=== PATIENT | female | born 1995 | race Caucasian/White ===

== ENCOUNTER → 2022-01-22 09:44 | Outpatient (BNVA) | payer BC, SELFPAY | PROVIDERS: PCP Family Medicine; Visit Provider Family Medicine | DX: Z30.9 Encounter for contraceptive management, unspecified (principal); N93.9 Abnormal uterine and vaginal bleeding, unspecified; F32.A Depression, unspecified | CPT/HCPCS: 80053; 82607; 84443; 85025 ==

== ENCOUNTER → 2022-08-24 14:00 | Outpatient (BNVA) | payer BC, SELFPAY | PROVIDERS: PCP Family Medicine; Visit Provider Obstetrics & Gynecology | DX: N93.9 Abnormal uterine and vaginal bleeding, unspecified (principal) | CPT/HCPCS: 84443; 85025 ==

== ENCOUNTER → 2023-07-26 07:59 | Outpatient (BNVA) | payer BC, SELFPAY | PROVIDERS: PCP Family Medicine; Visit Provider Family Medicine | DX: Z34.90 Encounter for supervision of normal pregnancy, unspecified, unspecified trimester (principal); R30.0 Dysuria | CPT/HCPCS: 80307; 81000; 81025; 84144; 84443; 84702; 85025; 86592; 86762; 86803; 86850; 86900; 87086; 87340; 87491; 87591; 87624; 87806 ==

== ENCOUNTER 2023-08-11 12:36 | Outpatient (CLI) | payer BC, SELFPAY ==
--- NOTE | 2023-08-11 13:00 | USR_ITS ---
PROCEDURE INFORMATION: Exam: US First Trimester, Transabdominal Exam date and time: 08/11/2023 12:39 PM Age: 28 years old Clinical indication: Screening exam; Routine US, uterus; Additional info: Dating US - next 1-2 weeks if possible LABS AND CLINICAL REPORTS: Last menstrual period start date: 05/14/2023 Gestational age (Established): 12 w 5 d Estimated due date (Established): 02/18/2024 TECHNIQUE: Imaging protocol: Real-time transabdominal obstetrical ultrasound of the maternal pelvis and a first trimester , less than 14 weeks 0 days, with image documentation. COMPARISON: No relevant prior studies available. FINDINGS: GESTATION: Gestation: Single intrauterine with a heart rate of 150 bpm. Embryonic/ heart rate: 150 bpm Extra-embryonic membranes/Placenta: Unremarkable. No subchorionic bleed. Amniotic/Chorionic fluid: Amniotic and extra-amniotic fluid are normal for gestational age. BIOMETRY: Gestational age (AUA): average gestational age of 12 weeks 1 day +/-4 days. [place] rump length (CRL): The crown-rump length measures 5.5 centimeters with an average gestational age of 12 weeks 1 day +/-4 days. MATERNAL: Uterus: Uterus measures 11.7 x 6.9 x 10.3 centimeters. Cervix: Unremarkable. Endocervical canal is closed. Right ovary/adnexa: The right ovary measures 3.5 x 1.8 x 4.1 centimeters Left ovary/adnexa: Left ovary measuring 4.1 x 2.3 x 2.7 centimeters. Intraperitoneal space: No intraperitoneal free fluid. US/US OB <= 14 weeks fetus [id number] IMPRESSION: 1. Single live intrauterine with a heart rate of 150 bpm. 2. Average gestational age of 12 weeks 1 day +/-4 days.
== END 2023-08-11 12:37 | disposition home or self-care (01) ==
LOC: RAD 12:36
PROVIDERS: PCP Family Medicine; Visit Provider Family Medicine
DX: Z34.00 Encounter for supervision of normal first pregnancy, unspecified trimester (principal)
CPT/HCPCS: 76801; 80307; 81000; 81025; 84144; 84443; 84702; 85025; 86592; 86762; 86803; 86850; 86900; 87086; 87340; 87491; 87591; 87624; 87806

== ENCOUNTER → 2023-09-21 15:45 | Outpatient (BNVA) | payer BC, SELFPAY | PROVIDERS: PCP Family Medicine; Visit Provider Family Medicine | DX: Z34.00 Encounter for supervision of normal first pregnancy, unspecified trimester (principal) | CPT/HCPCS: 81511 ==

== ENCOUNTER 2023-10-04 11:07 | Outpatient (CLI) | payer BC, SELFPAY ==
--- NOTE | 2023-10-04 11:15 | USR_ITS ---
PROCEDURE INFORMATION: Exam: US After First Trimester, Transabdominal Exam date and time: 10/04/2023 11:18 AM Age: 28 years old Clinical indication: Screening exam; Routine US, uterus; Additional info: Anatomy US - about 6 weeks from now LABS AND CLINICAL REPORTS: Gestational age (Established): 19 w 6 d Estimated due date (Established): 02/22/2024 TECHNIQUE: Imaging protocol: Real-time transabdominal obstetrical ultrasound of the maternal pelvis and a second or third trimester with image documentation. COMPARISON: US OB <= 14 weeks fetus [id number] 08/11/2023 12:39 PM FINDINGS: Gestation: Single live intrauterine gestation. heart rate: 152 bpm. Placenta: No placenta previa. No subchorionic bleed. Placenta is anterior. Amniotic fluid (Qualitative): Amniotic fluid is normal for gestational age. Amniotic fluid index: BAL is 11.04 cm. ANATOMY: midline falx: Normal cerebellum: Normal lateral ventricles: Normal cisterna magna: Normal choroid plexus: Normal face: Upper lip is normal. heart four-chamber view, heart size and position: Normal heart right ventricular outflow tract: Normal heart left ventricular outflow tract: Normal kidneys: Normal stomach: Normal urinary bladder: Normal spine: Normal Umbilical cord and insertion: Normal three-vessel cord. upper limbs: Normal lower limbs: Normal external genitalia: Obscured by position. BIOMETRY: Gestational age (AUA): 19 weeks 6 days Estimated due date (AUA): 02/22/2024 Estimated weight: 337.28 g. EFW by AC, BPD, FL, HC, [place] 1985 Biparietal diameter (BPD): 4.48 cm. EGA (BPD) is 19 w 4 d. 36.5 % percentile Head circumference (HC): 17.07 cm. EGA (HC) is 19 w 5 d. 33.3 % percentile Abdominal circumference (AC): 14.68 cm. EGA (AC) is 20 w 0 d. 48.4 % percentile Femur length (FL): 3.38 cm. EGA (FL) is 20 w 4 d. 69.4 % percentile HC/AC: 1.16. (Normal range: 1.08 - 1.26) FL/HC: 19.8. (Normal range: 16.7 - 19.59) FL/BPD: 75.45 FL/AC: 23.02 MATERNAL: Uterus: Intrauterine gestation. Cervix: Cervix is closed. Cervical length measures 5.9 cm. Right ovary/adnexa: Obscured by lack of adequate acoustic window. Left ovary/adnexa: Obscured by lack of adequate acoustic window. Intraperitoneal space: No intraperitoneal free fluid. US/US OB >= 14 weeks fetus [id number] IMPRESSION: Normal anatomic survey.
== END 2023-10-04 11:08 | disposition home or self-care (01) ==
PROVIDERS: PCP Family Medicine; Visit Provider Family Medicine
DX: Z34.00 Encounter for supervision of normal first pregnancy, unspecified trimester (principal)
CPT/HCPCS: 76805

== ENCOUNTER → 2023-11-16 10:41 | Outpatient (BNVA) | payer BC, SELFPAY | PROVIDERS: PCP Family Medicine; Visit Provider Family Medicine | DX: Z34.00 Encounter for supervision of normal first pregnancy, unspecified trimester (principal) | CPT/HCPCS: 82950 ==

== ENCOUNTER → 2023-12-31 10:09 | Outpatient (BNVA) | payer BC, SELFPAY | PROVIDERS: PCP Family Medicine; Visit Provider Family Medicine | DX: Z51.81 Encounter for therapeutic drug level monitoring (principal) | CPT/HCPCS: 85025 ==

== ENCOUNTER 2024-01-04 12:36 | Outpatient (CLI) | payer BC, SELFPAY ==
--- NOTE | 2024-01-04 12:45 | USR_ITS ---
PROCEDURE INFORMATION: Exam: US , Limited Exam date and time: 01/04/2024 12:47 PM Age: 28 years old Clinical indication: Screening exam; Routine US, uterus; Additional info: Bal/efw - next week please LABS AND CLINICAL REPORTS: Gestational age (Established): 33 w 4 d Estimated due date (Established): 02/18/2024 TECHNIQUE: Imaging protocol: Real-time ultrasound of the maternal uterus with image documentation. Exam focused on the clinical indication. COMPARISON: US OB >= 14 weeks fetus [id number] 10/04/2023 11:18 AM FINDINGS: Gestation: Single live intrauterine gestation. heart rate: 153 bpm. presentation and position: Cephalic. Placenta: Anterior. No previa. Amniotic fluid (Qualitative): Adequate amount of amniotic fluid. Amniotic fluid index: BAL is 12.88 cm. BIOMETRY: Gestational age (AUA): 33 weeks 3 days Estimated due date (AUA): 02/19/2024 Estimated weight: 2172.84 g. EFW by AC, BPD, FL, HC, [place] 1985, 35% percentile Biparietal diameter (BPD): 8.34 cm. EGA (BPD) is 33 w 4 d. 45.2 % percentile Head circumference (HC): 30.18 cm. EGA (HC) is 33 w 4 d. 14.2 % percentile Abdominal circumference (AC): 29.14 cm. EGA (AC) is 33 w 1 d. 39.3 % percentile Femur length (FL): 6.51 cm. EGA (FL) is 33 w 4 d. 39.1 % percentile HC/AC: 1.04. (Normal range: 0.95 - 1.11) FL/HC: 21.57. (Normal range: 19.69 - 21.63) FL/BPD: 78.06. (Normal range: 71 - 87) FL/AC: 22.34. (Normal range: 20 - 24) MATERNAL: Cervix: Unremarkable closed cervix measuring 5 cm. No funneling. US/US OB limited [id number] IMPRESSION: Single live intrauterine gestation with estimated age of 33 weeks 3 days and weight of 2173 g.
== END 2024-01-04 12:37 | disposition home or self-care (01) ==
LOC: RAD 12:37
PROVIDERS: PCP Family Medicine; Visit Provider Family Medicine
DX: O36.5930 Maternal care for other known or suspected poor fetal growth, third trimester, not applicable or unspecified (principal)
CPT/HCPCS: 76815

== ENCOUNTER → 2024-01-26 08:40 | Outpatient (BNVA) | payer BC, SELFPAY | PROVIDERS: PCP Family Medicine; Visit Provider Family Medicine | DX: Z34.93 Encounter for supervision of normal pregnancy, unspecified, third trimester (principal) | CPT/HCPCS: 87081 ==

== ENCOUNTER 2024-02-03 15:10 | Outpatient (CLI) | payer BC, SELFPAY ==
--- NOTE | 2024-02-03 15:15 | US_ITS ---
WS: [id number] BIOPHYSICAL PROFILE AND LIMITED OB. HISTORY: Measuring SGA - BAL, BPP, EFW - in next 3-5 days please COMPARISON: 08/11/2023, 10/04/2023 Presentation: Cephalic Cervix: Closed and normal length. Placenta: Anterior, no previa or abruption. Grade: 2 HEART: FHR of 153BPM. measurements: BPD = 8.9 cm = 36w1d; 24% HC = 33.1 cm = 37w4d; 24% AC = 33.1 cm = 37w0d; 44% FL = 7.4 cm = 37w5d; 47% BAL: 13.5 cm EFW: 3132.7g; 43% AGA by ultrasound: 37w1d KHURRAM by ultrasound: 02/23/2024 Measurements are internally concordant. Biophysical profile: Parameters are as follows: Breathin Movement: 2 Tone: 2 Fluid volume: 2 US/US OB lm w fetalBPP woNST &umb IMPRESSION: 1. Biophysical profile score: 8/8. 2. Single intrauterine gestation of 37w1d with an 02/23/2024. Appropriate growt h since the first trimester ultrasound. 3. Estimated weight at the 43rd percentile for age. 4. No intrauterine growth asymmetry. 5. Amniotic fluid index: 13.5 cm.
== END 2024-02-03 15:11 | disposition home or self-care (01) ==
LOC: RAD 15:11
PROVIDERS: PCP Family Medicine; Visit Provider Family Medicine
DX: O36.5930 Maternal care for other known or suspected poor fetal growth, third trimester, not applicable or unspecified (principal)
CPT/HCPCS: 76815; 76819; 76820

== ENCOUNTER → 2024-02-04 10:34 | Outpatient (BNVA) | payer BC, SELFPAY | PROVIDERS: PCP Family Medicine; Visit Provider Family Medicine | DX: O26.893 Other specified pregnancy related conditions, third trimester (principal); Z3A.37 37 weeks gestation of pregnancy; R03.0 Elevated blood-pressure reading, without diagnosis of hypertension; Z51.81 Encounter for therapeutic drug level monitoring | CPT/HCPCS: 80053; 82570; 84156; 84550; 85025 ==

== ENCOUNTER → 2024-02-10 09:13 | Outpatient (BNVA) | payer BC, SELFPAY | PROVIDERS: PCP Family Medicine; Visit Provider Family Medicine | DX: Z34.00 Encounter for supervision of normal first pregnancy, unspecified trimester (principal); R03.0 Elevated blood-pressure reading, without diagnosis of hypertension | CPT/HCPCS: 84156 ==

== ENCOUNTER 2024-02-17 18:13 | Inpatient (IN) | payer BC, SELFPAY ==
[2024-02-17] VITALS (15 sets, daily range): BP systolic 99–113; BP diastolic 57–78; PULSE 76–100; RESP 16; BMI 27.0
[2024-02-17 18:57] LABS: Basophils # 0.1 10^3/uL (0.0-0.1); Basophils % 0.7 %; Eosinophils # 0.1 10^3/uL (0.0-0.8); Eosinophils % 1.2 %; Hematocrit 38.1 % (36-47); Lymphocytes % 28.9 %; Mean Corpuscular HGB Conc 33.6 g/dL (30-55); Mean Corpuscular Hemoglobin 30.3 pg (27-33); Mean Corpuscular Volume 90.3 fl (85-98); Mean Platelet Volume 10.8 fL (7.4-10.4); Monocytes # 0.5 10^3/uL (0.2-0.9); Monocytes % 6.9 %; Neutrophils # 4.27 10^3/uL (1.8-7.7); Neutrophils % 61.7 %; Nucleated Red Blood Cells % 0 %; Platelet Count 220 10^3/cmm (157-399); Red Blood Count 4.22 10^6/uL (3.85-5.65); Red Cell Distribution Width 18.1 % (12.1-15.1); White Blood Count 6.92 10^3/uL (3.29-11.43)
[2024-02-17] MEDS: miSOPROStol 100 mcg tablet 25 MCG VAGINAL (19:45)
--- NOTE | 2024-02-17 20:18 | P.HP_ITS ---
Providers/Chief Complaint 2 Admitting Physician: Elvis Banegas MD Primary Care Provider: Elvis Banegas MD Chief Complaint: IOL History of Present Illness Natalya Talley is a 28 year old @ 39.6 wks by LMP c/with 12 wk US. c/b FOB with child that had congenital heart disease (Likely hypoplastic left ventricle). The patient presented to labor and delivery on the evening of 02/17/2024 for a scheduled elective induction of labor. The patient has not had any significant complications with the . She has been measuring small, however her ultrasounds have shown appropriate growth. The patient has been feeling well. She denies any chest pains, cough, shortness of breath, nausea, vomiting, dysuria, leakage of fluid, vaginal bleeding, fevers. Medications/Allergies Home Medications Medication Instructions Recorded Confirmed Last Taken Type multivitamin 1 tab PO DAILY 07/26/23 02/15/24 Unknown History ferrous sulfate 325 mg (65 mg 325 mg PO DAILY #30 tabs 01/03/24 02/15/24 Unknown Rx iron) tablet Allergies Allergy/AdvReac Type Severity Reaction Status Date / Time No Known Allergies Allergy Verified 10/22/23 09:54 PFSH Acute 2 PFSH: Surgical History No pertinent past surgical history Family History Father Enlarged heart, Onset Age: 44 Denies family history of Colon cancer Ovarian cancer Diabetes Heart disease Hypercholesteremia Breast cancer Hypertension Uterine cancer Thyroid disease Stroke Social History Smoking and tobacco/nicotine status: never used tobacco/nicotine Alcohol intake: never Substance/Drug Use: never Current occupation: [employer] Female Reproductive History: : 1 Vitals/I&O/Wt Last Vital Signs Pulse 80 02/17/24 20:14 Resp 16 02/17/24 18:41 BP 101/71 02/17/24 20:14 O2 Del Method Room Air 02/17/24 18:35 Weight last 48 hrs Weight 152 lb 8 oz Physical Exam 2 Narrative: General: Alert and oriented x3 Eyes: Pupils equal round and reactive to light and accommodation Mouth: Mucous membranes moist, pharynx non-erythematous Cardiac: Regular rate and rhythm without murmurs Lungs: Clear to auscultation bilaterally without wheezes, crackles or rhonchi Abdomen: Soft, non-tender, fundus measures small compared to gestational age Extremities: Trace edema in the bilateral lower extremities Data 02/17/24 18:30 A&P Assessment and plan (1) Supervision of normal intrauterine in primigravida: The patient is doing well overall at this time. heart tones are in the mid 140s with moderate variability and good accelerations. She has a category 1 tracing. She is gissel sporadically, but these are not currently graphing while on the monitor. Her first dose of Cytotec has been placed at approximately 7:45 PM. We will plan to place up to 3 doses depending on her course. She was closed/thick/high upon presentation. We discussed options for pain control including IV medications and epidural. She may have a laboring epidural once she reaches 3 cm or more if she would like. At this point we will proceed with routine induction management. The patient is GBS negative. All questions were answered. The patient and her are in agreement with the current plan of care. Attestations 2 Medical Necessity Statement*: The patient will be here for greater than 2 midnights due to routine intrapartum and management of labor delivery. Coding Level of Care Code Acute Code for Chg Fwd Diagnoses Supervision of normal intrauterine in primigravida Z34.00
[2024-02-18] VITALS (29 sets, daily range): BP systolic 97–129; BP diastolic 54–88; PULSE 60–96; TEMP 35.9–36.7
[2024-02-18] MEDS: miSOPROStol 100 mcg tablet 25 MCG VAGINAL (07:47)
--- NOTE | 2024-02-18 13:39 | P.PN_ITS ---
Subjective 2 Subjective: The patient is doing well overall. She received her first dose of Cytotec at approximately 8 PM. She began to have regular contractions with this. After 4 hours she did not make any change however. She was gissel every 3 to 4 minutes so a second dose was not given initially. By 7 AM today her contractions started to space out. She was still closed at that time. For this reason a second dose of Cytotec was given. Currently the patient is gissel every 2 to 3 minutes. heart tones are in the mid 130s with moderate variability good accelerations. Occasional early decelerations are noted. The patient is feeling the contractions and they are uncomfortable. She has not had any leakage of fluid or bleeding yet. Vitals/I&O/Wt Last Vital Signs Temp 98.1 F 02/18/24 03:27 Pulse 89 02/18/24 12:15 Resp 16 02/17/24 18:41 BP 116/88 02/18/24 12:15 O2 Del Method Room Air 02/17/24 18:35 Weight last 48 hrs Weight 152 lb 8 oz Physical Exam 2 Narrative: General: Alert and oriented x3 Cardiac: Regular rate and rhythm without murmurs Lungs: Clear to auscultation bilaterally without wheezes, crackles or rhonchi Abdomen: Firm with contractions Extremities: Trace edema in the bilateral lower extremities Data 02/17/24 18:30 A&P Assessment and plan (1) Supervision of normal intrauterine in primigravida: The patient is doing well overall at this time. heart tones have a category 1 tracing. She is gissel every 2 to 3 minutes. We will hold off on further Cytotec for now. If her contractions spaced out, there would be a possibility of a third dose, however if she continues to make change then we will monitor for now. Proceed with routine intrapartum induction of labor at this point. All questions were answered. The patient and her are in agreement with current plan of care. Attestations 2 Medical Necessity Statement*: The patient will be here for greater than 2 midnights due to routine intrapartum and management of labor and delivery. Coding Level of Care Code Acute Code for Chg Fwd Diagnoses Supervision of normal intrauterine in primigravida Z34.00
[2024-02-18] MEDS: ondansetron 2 mg/ML SDV 2 mL 4 MG IVP ×2 (15:43→18:44)
[2024-02-18] MEDS: lidocaine 2% INJ 20 mL INJECTION (20:50)
--- NOTE | 2024-02-18 21:27 | P.PCNOB_ITS ---
Delivery Note: Date of delivery: February 18, 2024 Pre-delivery diagnoses: 1. Intrauterine at 40.0 weeks gestation 2. Elective induction of labor Post-delivery diagnoses: 1. Intrauterine status post s pontaneous vaginal delivery at 40.0 weeks gestation 2. Elective induction of labor 3. Nuchal cord x 1 4. Second-degree right vaginal wall and labia laceration 5. Second-degree left vaginal wall lace ration 6. Delivery of healthy male teodora moreirang 6 pounds 11 ounces with Apgars of 8 and 9 Procedure: Spontaneous vaginal delivery Delivering Physician: Elvis Banegas MD Estimated blood loss (mL): 350 Findings: 1. Healthy male weighing 6 pound s 11 ounces with Apgars of 8 and 9 2. Intact placenta with central umbilic al cord insertion site Pre-Delivery Course: Natalya Talley is a 28 year old G1 NOW P1 status post spontaneous vaginal delivery@ 40.0 wks by LMP c/with 12 wk US. Her was complicated by FOB with child that had congenital heart disease (Likely hypoplastic left ventricle). The patient presented to labor and delivery on the evening of 02/17/2024 for a scheduled elective induction of labor. The patient had not had any significant complications with the . She was closed/thick/high upon presentation. She was given 1 dose of Cytotec on the evening of 02/17/2024. She started gissel but this however did not make any change. Her contractions started to space out by approximately 7 AM on 02/18/2024, so a second dose of Cytotec was given. With this dose that she changed to 2 cm after 4 hours. She was having contractions every 3 to 4 minutes and they were painful. For this reason no further Cytotec was given. The patient continued to contract and started to make change on her own. No IV Pitocin for induction was necessary. The patient was 7 cm dilated and had a bulging bag of fluid so in order to augment labor, AROM was performed at 16:46 on 02/18/2024. The patient had clear fluid. The head was well applied to the cervix. The patient continued to make change and was complete by 19:52 on 02/18/2024. The patient did not want to have a laboring epidural. Delivery: The patient began pushing at 19:55 on 02/18/2024. The patient pushed well and the infant delivered in the OA position at 20:11 on 02/18/2024. A nuchal cord was present and reduced. The left shoulder was the anterior shoulder and it delivered with ease. The rest of the infant delivered with ease. The infant's mouth and nose were bulb suction by myself and the was placed on the mother's chest where the nurses were awaiting to care for him. The cord was clamped by myself after approximately 1 minute and cut by the 's father. Cord blood was obtained. The infant took a breath immediately upon delivery, however had overall poor respiratory effort initially. He was eventually taken to the warmer and did well with minimal intervention. The umbilical cord was clamped and traction was placed on umbilical cord and uterine massage was carried out. The placenta delivered without complication at 20:15 on 02/18/2024. The placenta was noted to be intact with a central umbilical cord insertion site. The cervix was inspected and no lacerations were noted. An extensive right vaginal wall tear was noted that moved deep into the posterior lateral vagina. A speculum was used for visualization. 2% lidocaine was placed for anesthesia locally. 3-0 Vicryl was used to repair this in a running fashion. This was then extended to the vertical portion of the tear that extended up to the upper right labia near the clitoral tent. 3-0 Vicryl was used to reapproximate the labial tear. Care was taken to reapproximate this closely. A much smaller tear was noted on the left vaginal wall and this was also repaired in a running fashion. A rectal exam was done and no sutures were noted in the rectal vault. The patient tolerated the procedure well. Post-Delivery Status: Currently both the mother and infant are doing well. History History History 1 Term 1 0 Miscarriages/Ectopic 0 Living Children 1 Past Pregnancies Del. Date GA/Weeks Outcome Route Wt Inf Gender Labor Lgth Comp. Anesth esia Location 02/18/24 40 live - full term Vaginal 6 lb 11 oz Male 12 [facility] - [place] Delivery Date: 02/18/24 Last Updated by: Elvis Banegas MD Extensive right vaginal wall tear with repair. Nuchal cord x 1. No other complications. Measured small throughout 3rd TM on fundal height with good growth on US. A&P Assessment and plan (1) Spontaneous vaginal delivery: The patient is doing well at this time we will proceed with routine care. We will certainly watch for any signs of complications. Coding Level of Care Code Acute Code for Chg Fwd Diagnoses Spontaneous vaginal delivery O80
[2024-02-18] MEDS: ibuprofen 800 mg tablet PO (22:47)
[2024-02-19] VITALS (15 sets, daily range): BP systolic 94–129; BP diastolic 58–84; PULSE 64–91; RESP 17; TEMP 36.6–36.8; O2SAT 98
[2024-02-19] MEDS: PRENATAL VIT NO.130/IRON/FOLIC 1 EACH TABLET PO (09:13)
[2024-02-19] MEDS: ibuprofen 800 mg tablet PO ×3 (09:13→22:30)
[2024-02-19] MEDS: docusate sodium 100 mg Capsule PO (09:13)
[2024-02-19 10:01] LABS: Hematocrit 34.1 % (36-47); Mean Corpuscular HGB Conc 32.8 g/dL (30-55); Mean Corpuscular Hemoglobin 29.5 pg (27-33); Mean Corpuscular Volume 89.7 fl (85-98); Mean Platelet Volume 10.6 fL (7.4-10.4); Platelet Count 193 10^3/cmm (157-399); White Blood Count 14.74 10^3/uL (3.29-11.43)
--- NOTE | 2024-02-19 11:59 | P.PN_ITS ---
Subjective 2 Subjective: The patient is feeling well overall at this time. Her bleeding is decreasing well. She is ambulating, voiding, passing gas and tolerating food by mouth. Her pain is currently well-controlled. She does have pain with breast-feeding. Vitals/I&O/Wt Last Vital Signs Temp 96.6 F L 02/18/24 18:13 Pulse 81 02/19/24 06:15 Resp 16 02/17/24 18:41 BP 115/72 02/19/24 06:15 O2 Del Method Room Air 02/18/24 18:34 02/18/24 02/19/24 02/19/24 22:59 06:59 14:59 Intake Total 500 / 500 Output Total 500 / 500 Balance 0 / 0 Weight last 48 hrs Weight 152 lb 8 oz Physical Exam 2 Narrative: General: Alert and oriented x3 Cardiac: Regular rate and rhythm without murmurs Lungs: Clear to auscultation bilaterally without wheezes, crackles or rhonchi Abdomen: Soft, mild tenderness over uterus. The uterus is firm and 2 cm below the umbilicus. Extremities: Trace edema in the bilateral lower extremities Data 02/19/24 09:45 A&P Assessment and plan (1) Spontaneous vaginal delivery: The patient is doing well overall at this time. We will proceed with routine care. Will plan for discharge home tomorrow as long as she continues to do well. Attestations 2 Medical Necessity Statement*: The patient will be here for greater than 2 midnights due to routine intrapartum and management of labor and delivery. Coding Level of Care Code Acute Code for Chg Fwd Diagnoses Spontaneous vaginal delivery O80
--- NOTE | 2024-02-19 21:28 | PM.DCS ---
Discharge Providers Date of Admission: 02/17/24 18:13 Date of Discharge: February 19, 2024 Attending Provider at Admission: Elvis Banegas MD Attending Provider at Discharge: Elvis Banegas MD Primary Care Provider: Elvis Banegas MD Diagnoses at Discharge Discharge Diagnosis (1) Spontaneous vaginal delivery: Status: Resolved Other Information Additional DC diagnoses/information: 1. Intrauterine status post spontaneous vaginal delivery at 40.0 weeks gestation 2. Elective induction of labor 3. Nuchal cord x 1 4. Second-degree right vaginal wall and labia laceration 5. Second-degree left vaginal wall laceration 6. Delivery of healthy male weighing 6 pounds 11 ounces with Apgars of 8 and 9 Reason for Visit Reason for Visit: IOL Brief History: Natalya Talley is a 28 year old G1 NOW P1 status post spontaneous vaginal delivery@ 40.0 wks by LMP c/with 12 wk US. Her was complicated by FOB with child that had congenital heart disease (Likely hypoplastic left ventricle). The patient presented to labor and delivery on the evening of 02/17/2024 for a scheduled elective induction of labor. The patient had not had any significant complications with the . She was closed/thick/high upon presentation. Hospital Course Hospital Course She was given 1 dose of Cytotec on the evening of 02/17/2024. She started gissel but this however did not make any change. Her contractions started to space out by approximately 7 AM on 02/18/2024, so a second dose of Cytotec was given. With this dose that she changed to 2 cm after 4 hours. She was having contractions every 3 to 4 minutes and they were painful. For this reason no further Cytotec was given. The patient continued to contract and started to make change on her own. No IV Pitocin for induction was necessary. The patient was 7 cm dilated and had a bulging bag of fluid so in order to augment labor, AROM was performed at 16:46 on 02/18/2024. The patient had clear fluid. The head was well applied to the cervix. The patient continued to make change and was complete by 19:52 on 02/18/2024. The patient did not want to have a laboring epidural. The patient began pushing at 19:55 on 02/18/2024. The patient pushed well and the delivered in the OA position at 20:11 on 02/18/2024. The delivered without complication. The patient had a vaginal wall and labial tear that was repaired. Her bleeding was mild to moderate. she has not had any complications. She is ambulating, voiding, passing gas and tolerating food by mouth. Her bleeding is decreasing well and her pain is under good control. Routine discharge instructions were discussed. She will plan to follow up with me at 6 weeks or sooner if needed. All questions were answered. The patient requests discharge home and I believe that she is stable at this time to do so safely. Physical Exam Narrative: General: Alert and oriented x3 Cardiac: Regular rate and rhythm without murmurs Lungs: Clear to auscultation bilaterally without wheezes, crackles or rhonchi Abdomen: Soft, mild tenderness over uterus. The uterus is firm and 2 cm below the umbilicus. Extremities: Trace edema in the bilateral lower extremities Discharge Data Studies Completed and Pending Laboratory Results WBC 14.74 10^3/uL (3.29-11.43) H 02/19/24 09:45 RBC 3.80 10^6/uL (3.85-5.65) L 02/19/24 09:45 Hgb 11.20 g/dL (11.27-16.99) L 02/19/24 09:45 Hct 34.1 % (36-47) L 02/19/24 09:45 MCV 89.7 fl (85-98) 02/19/24 09:45 MCH 29.5 pg (27-33) 02/19/24 09:45 MCHC 32.8 g/dL (30-55) 02/19/24 09:45 RDW 18.0 % (12.1-15.1) H 02/19/24 09:45 Plt Count 193 10^3/cmm (157-399) 02/19/24 09:45 MPV 10.6 fL (7.4-10.4) H 02/19/24 09:45 Neut % (Auto) 61.7 % 02/17/24 18:30 Lymph % (Auto) 28.9 % 02/17/24 18:30 [place] % (Auto) 6.9 % 02/17/24 18:30 Eos % (Auto) 1.2 % 02/17/24 18:30 Baso % (Auto) 0.7 % 02/17/24 18:30 Neut # (Auto) 4.27 10^3/uL (1.8-7.7) 02/17/24 18:30 Lymph # (Auto) 2.0 10^3/uL (0.8-4.8) 02/17/24 18:30 [place] # (Auto) 0.5 10^3/uL (0.2-0.9) 02/17/24 18:30 Eos # (Auto) 0.1 10^3/uL (0.0-0.8) 02/17/24 18:30 Baso # (Auto) 0.1 10^3/uL (0.0-0.1) 02/17/24 18:30 Nucleated RBC % (auto) 0 % 02/17/24 18: Nucleated RBCs # 0.0 /100WBC 02/17/24 18:30 Blood Type O Positive 02/17/24 18:30 Rho(D) Type Rh positive 02/17/24 18:30 Antibody Screen Negative 02/17/24 18:30 Vitals Last Vital Signs Temp 98.1 F 02/19/24 16:50 Pulse 83 02/19/24 16:50 Resp 17 02/19/24 16:50 BP 110/76 02/19/24 16:50 O2 Del Method Room Air 02/19/24 16:50 Discharge Plan Discharge Patient Disposition: Home Condition: Good Prescriptions: New ibuprofen 800 mg Tablet 800 mg PO TID Qty: 60 0RF Continued multivitamin Tablet 1 tab PO DAILY ferrous sulfate 325 mg (65 mg iron) tablet 325 mg PO DAILY Qty: 30 3RF Discharge Orders: Discharge Order (Routine); Ordered 02/19/24 Ordered By: Elvis Banegas Referrals: Elvis Banegas MD [Primary Care Provider] - 6 Weeks Discharge Diet: Regular Discharge Activity: Increase activity as tolerated Patient Instructions: Depression (GEN), Perineal Care (GEN), Bleeding (GEN), Preeclampsia and Eclampsia After Delivery (GEN), Hemorrhage (GEN), OB Discharge Report, OB Food/Drug Interaction Guide, OB Care at Home, Opioid Safety, OB Home Care, OB [facility] - [facility], OB Vaginal Deliveries, Abnormal Bleeding Activity Restrictions/Additional Instructions: Nothing per vagina for 6 weeks. Showers are recommended instead of baths for the first 6 weeks. Discharge Attestations Time Spent in Discharge Care*: greater than 30 min Quality Metrics Clinical Quality Measures [ No reported AMI, CVA or VTE this stay] Coding Level of Care Code Acute Code for Chg Fwd Diagnoses Spontaneous vaginal delivery O80
== END 2024-02-19 22:33 | disposition home or self-care (01) | DRG 807 ==
LOC: OPOB 18:14 → OBGYN 18:14
PROVIDERS: Admitting Provider Family Medicine; PCP Family Medicine; Visit Provider Family Medicine
DX: O76 Abnormality in fetal heart rate and rhythm complicating labor and delivery (principal); Z37.0 Single live birth; O70.1 Second degree perineal laceration during delivery; O69.81X0 Labor and delivery complicated by cord around neck, without compression, not applicable or unspecified; Z3A.40 40 weeks gestation of pregnancy
CPT/HCPCS: 36415; 59025; 59409; 85025; 85027; 86850; 86900; 99211; J2405